=== PATIENT | female | born 1980 | race Caucasian/White ===

== ENCOUNTER 2017-10-18 16:37 | Emergency (ER) | payer OTHER, BC, SELFPAY ==
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
[2017-10-18 16:43] VITALS: BP 141/97; PULSE 90; RESP 16; TEMP 36.9; O2SAT 99; BMI 28.3
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
--- NOTE | 2017-10-18 17:23 | PC.NURSE ---
denies nausea at this time, sitting up
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
[2017-10-18] MEDS: CYCLOBENZAPRINE 10 MG TABLET PO (17:29)
[2017-10-18 18:45] VITALS: BP 130/90; PULSE 84; RESP 18; O2SAT 100
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
--- NOTE | 2017-10-18 19:05 | PC.NURSE ---
pt states, muscle relaxant medication helped, but the spine still hurts, requesting xray. provider made aware.
== END 2017-10-18 19:47 | disposition home or self-care (01) ==
PROVIDERS: Emergency Provider Nurse Practitioner Family
DX: S16.1XXA Strain of muscle, fascia and tendon at neck level, initial encounter (principal); V49.50XA Passenger injured in collision with unspecified motor vehicles in traffic accident, initial encounter
CPT/HCPCS: 72072; 72125; 99283

== ENCOUNTER 2017-10-24 18:21 | Emergency (ER) | payer OTHER, BC, SELFPAY ==
[2017-10-24 18:26] VITALS: BP 127/91; PULSE 86; RESP 16; TEMP 36.9; O2SAT 99; BMI 27.4
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
[2017-10-24 20:30] VITALS: BP 127/91; PULSE 86; RESP 16; TEMP 36.9; O2SAT 99; BMI 27.4
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
== END 2017-10-24 21:10 | disposition home or self-care (01) ==
PROVIDERS: Emergency Provider Emergency Medicine
DX: S46.911A Strain of unspecified muscle, fascia and tendon at shoulder and upper arm level, right arm, initial encounter (principal); V89.2XXD Person injured in unspecified motor-vehicle accident, traffic, subsequent encounter
CPT/HCPCS: 73030; 99282; 99283

== ENCOUNTER 2018-02-06 09:12 | Emergency (ER) | payer BC, SELFPAY ==
[2018-02-06 09:29] VITALS: BP 131/93; PULSE 96; RESP 15; TEMP 37.2; O2SAT 99; BMI 27.4
[2018-02-06 11:16] VITALS: BP 118/74; PULSE 64; RESP 15; O2SAT 98
--- NOTE | 2018-02-06 12:17 | ED_ITS ---
HPI - Abdominal Pain General Chief Complaint: Abdominal Pain Stated Complaint: shooting pain in lower abd. Time Seen by Provider: 02/06/18 12:09 Source: patient Mode of arrival: ambulatory Limitations: no limitations History of Present Illness HPI narrative: This is a 37-year-old female comes to the emergency department with complaint of abdominal pain. Patient states she is having some right lower quadrant pain. She felt sort of chilled last night. She had pain got nauseated throughout up and her pain improved. Today her pain has returned. She has been nauseated but not had any vomiting. No diarrhea or constipation. She is having urinary frequency she does not think she has had dysuria. She denies any vaginal bleeding or discharge. Patient is also having a little bit of flank pain. She states she has had a hysterectomy as well as her left ovary and fallopian tube removed. She does have her right ovary and fallopian tube she states she does have her appendix. She denies any other medical issues. Related Data Home Medications Medication Instructions Recorded Confirmed Bc Powder 1 dose PO PRN PRN 10/18/17 02/06/18 acetaminophen [Tylenol] 1 dose PO PRN PRN 10/18/17 02/06/18 Previous Rx's Medication Instructions Recorded tramadol [Ultram] 50 mg PO Q4-6H PRN #10 tab 02/06/18 Allergies Allergy/AdvReac Type Severity Reaction Status Date / Time No Known Drug Allergies Allergy Verified 02/06/18 09:29 Review of Systems Review of Systems All systems reviewed & are unremarkable except as noted in HPI and below Constitutional Reports chills Gastrointestinal Gastrointestinal: Reports abdominal pain, Denies change in bowel habits, Denies change in stool character, Denies diarrhea, Reports nausea and Reports vomiting Genitourinary Denies abnormal vaginal bleeding, Denies hematuria, Reports urinary frequency, Reports flank pain (Right), Denies urinary incontinence and Denies urinary urgency Musculoskeletal Reports back pain (Right back/flank) [facility] Medical History H/O: hysterectomy (Acute) Migraines (Acute) Surgical History H/O oophorectomy (Acute) History of cholecystectomy (Acute) Social History Smoking Status: Current every day smoker Exam Narrative Exam Narrative: GENERAL: Alert and oriented x three, obese femalein moderate distress HEENT: Head normocephalic, atraumatic, EOMI, pupils reactive, face symmetric, moist mucous membranes NECK: Supple, full range of motion CARDIOVASCULAR: Regular rate and rhythm without murmurs, rubs or gallops. RESPIRATORY: Breath sounds equal bilaterally, no wheezes rales or rhonchi. ABDOMEN: Soft, positive for right lower quadrant tenderness. Patient also does not have any rigidity, rebound or mass. She has no guarding. Normoactive bowel sounds all 4 quadrants. No guarding or rebound, rigidity, no mass : right CVA tenderness mild, no left CVA tenderness. EXTREMITIES: Normal range of motion, no clubbing or edema. Neurovascularly intact NEUROLOGICAL: Cranial nerves II through XII grossly intact. Moving all extremities SKIN: Warm, dry, no petechiae, no rashes or lesions. Initial Vital Signs Initial Vital Signs: Vital Signs Temperature 98.9 F 02/06/18 09:29 Pulse Rate 96 H 02/06/18 09:29 Respiratory Rate 15 02/06/18 09:29 Blood Pressure 131/93 H 02/06/18 09:29 Pulse Oximetry 99 02/06/18 09:29 Course Orders Ordered: ED Orders 02/06/18 13:12 CT abdomen pelvis w con Stat 02/06/18 13:15 Complete Blood Count AUTO DIFF Stat Comprehensive Metabolic Panel Stat Lipase Stat Discontinued Medications Sodium Chloride (Normal Saline 0.9%) 1,000 mls @ 150 mls/hr IV CONT PASQUALE Last Infusion: 02/06/18 15:38 Dose: 0 mls/hr Infusion: 02/06/18 14:10 Dose: 150 mls/hr Infusion: 02/06/18 13:56 Dose: 0 mls/hr Admin: 02/06/18 13:19 Dose: 150 mls/hr Ketorolac Tromethamine (Toradol) 30 mg IV NOW ONE Stop: 02/06/18 12:25 Last Admin: 02/06/18 13:18 Dose: 30 mg Vital Signs - 8 hr 02/06/18 12:51 02/06/18 13:32 02/06/18 15:38 Pulse Rate 68 70 84 Respiratory Rate 16 16 15 Blood Pressure 110/79 Blood Pressure [Right Arm] 129/76 119/69 Pulse Oximetry 99 99 96 MDM - Abdominal Pain Lab Data Attestation: I reviewed the patient's lab results. Result diagrams: 02/06/18 13:15 02/06/18 13:15 Lab Results 02/06/18 02/06/18 Range/Units 13:15 13:15 WBC 15.0 H (4.5-11.0) X10^3/uL RBC 4.82 (4.0-5.2) X10^6/uL Hgb 14.6 (12.0-16.0) g/dL Hct 43.2 (36-46) % MCV 89.7 (80-100) fL MCH 30.3 (26-34) PG MCHC 33.8 (30-36) % RDW 14.7 (11.6-14.8) % Plt Count 394 (150-400) X10^3/uL Neut % (Auto) 63.2 (50-75) % Lymph % (Auto) 29.5 (25-40) % [place] % (Auto) 4.2 (3-14) % Eos % (Auto) 2.0 (2-4) % Baso % (Auto) 1.1 (0-2) % Neut # (Auto) 9500 H (2350-3063) /uL Sodium 143 (137-145) mmol/L Potassium 4.3 (3.4-5.1) mmol/L Chloride 104 (98-107) mmol/L Carbon Dioxide 31 (22-32) mmol/L BUN 9 (7-17) mg/dL Creatinine 0.60 (0.52-1.04) mg/dL Estimated GFR > 60.0 (>60) mL/min BUN/Creatinine Ratio 15.0 (6-22) Glucose 89 (70-100) mg/dL Calcium 9.5 (8.4-10.2) mg/dL Total Bilirubin 0.6 (0.2-1.3) mg/dL AST 29 (14-36) IU/L ALT 28 (9-52) IU/L Alkaline Phosphatase 74 (38-126) U/L Total Protein 7.5 (6.3-8.2) g/dL Albumin 4.5 (3.5-5.0) g/dL Globulin 3.0 (1.7-4.1) g/dL Albumin/Globulin Ratio 1.5 (1.0-2.8) Lipase 78 (23-300) U/L Point of care testing: Point of Care Testing Test Results Negative Urine Dip Bedside Urine Glucose Negative Bedside Urine Bilirubin - Negative Bedside Urine Ketone - Negative Urine Specific [place] 1.015 Bedside Urine Occult Blood - Negative Bedside Urine pH 6.5 Bedside Urine Protein - Negative Bedside Urine Urobilinogen - Negative Bedside Urine Nitrite - Negative Bedside Urine Leukocytes - Negative Esterase Imaging Data CT scan - abdomen: Radiologist's impression: [address] [id number] [address] Scan Report Signed Patient: China Saeed JMR#: [id number] : 1980Acct:[id number] Age/Sex: 37 / FDate of Service: 02/06/18 Loc: ED Accession Number: [id number] Procedure: CT abdomen pelvis w con Ordering Provider: Mari Dickinson D.O. PROCEDURE: CT ABDOMEN PELVIS W CON INDICATIONS: RLQ pain, frequency TECHNIQUE: After the administration of intravenous contrast, 5 mm thick sections acquired from the diaphragm to the symphysis. 5 mm coronal and sagittal reformats were acquired. For radiation dose reduction, the following was used: automated exposure control, adjustment of mA and/or kV according to patient size. COMPARISON: None. FINDINGS: Image quality: Excellent. ABDOMEN: Lung bases: Lung bases are clear. Heart size is normal. Solid organs: Liver is normal in size and enhancement. Gallbladder has undergone prior cholecystectomy.. Biliary system is non dilated. Pancreas enhances normally. Spleen is normal in size and enhancement. No adrenal nodules. Kidneys demonstrate normal size and enhancement, without hydronephrosis. Peritoneum and bowel: Bowel loops demonstrate normal wall thickness and caliber. No free fluid or air. Nodes and vessels: No retroperitoneal or mesenteric adenopathy by size criteria. Aorta and inferior vena cava are normal in size. Miscellaneous: No ventral hernias. PELVIS: Genitourinary: Bladder wall thickness is normal. Miscellaneous: No inguinal hernias or adenopathy. Bones: No suspicious bony lesions. No vertebral body compression fractures. IMPRESSION: Source of current symptoms is not seen. Prior cholecystectomy. Dictated by: Isidoro Calderon M.D. on 02/06/2018 at 14:43 Approved by: Isidoro Calderon M.D. on 02/06/2018 at 14:44 MDM Narrative Medical decision making narrative: 37-year-old female comes in with complaint of right lower abdominal pain a little bit into the flank. She also had some frequency. Um initially concern for pyelonephritis but urine was negative. Patient does have a white count of [address] abdomen pelvis was ordered. Patient case was discussed with Dr. Peoples while CT was pending. CT does not identify a appendix but I spoke with Dr. Calderon who read the imaging and he does not see any free fluid, inflammation or cyst signs that would be suspicious for appendicitis. Discussed with patient there is a remote chance she could have endometriosis as a potential cause but I did ask her to return if she is having worsening symptoms if she could potentially have very early appendicitis versus other causes. Discharge Plan Departure Patient Disposition: Home Clinical Impression: Abdominal pain Discharge Date/Time: 02/06/18 15:40 Interventions: ED Discharge Assessment Last Done: 02/06/18 15:38 Instructions: DI for Abdominal Pain-Adult Activity Restrictions/Additional Instructions: Follow-up with primary care in 2-3 days for recheck. Your labs today do show a slightly elevated white blood cell count but no other acute changes. Your CT does not show any clear changes to the appendix or other organs in the abdomen although your appendix was not clearly identified. Take pain medications as prescribed Return to the emergency department for fevers greater than 100.4, increasing abdominal or flank pain, syncope, new or persistent vomiting. Black or bloody stools or other new or concerning symptoms. Prescriptions: New tramadol [Ultram] 50 mg tablet 50 mg PO Q4-6H PRN (Reason: pain) Qty: 10 RF: 0 No Action acetaminophen [Tylenol] 325 mg Tablet 1 dose PO PRN PRN (Reason: Pain, Mild) RF: 0 Bc Powder 1 dose PO PRN PRN (Reason: Pain, Mild) RF: 0 Referrals: Crystal Russell MD [Physician] - Stand Alone Forms: Work/School Restrictions
[2018-02-06 12:51] VITALS: BP 129/76; PULSE 68; RESP 16; O2SAT 99
--- NOTE | 2018-02-06 13:06 | PC.NURSE ---
c/o right lower abdominal pain for 2 days, better when doubled over. last solid meal last night at 6pm, pt insisting with ice chips, ok with dr banda.
--- NOTE | 2018-02-06 13:12 | DI.CT.S_ITS ---
PROCEDURE: CT ABDOMEN PELVIS W CON INDICATIONS: RLQ pain, frequency TECHNIQUE: After the administration of intravenous contrast, 5 mm thick sections acquired from the diaphragm to the symphysis. 5 mm coronal and sagittal reformats were acquired. For radiation dose reduction, the following was used: automated exposure control, adjustment of mA and/or kV according to patient size. COMPARISON: None. FINDINGS: Image quality: Excellent. ABDOMEN: Lung bases: Lung bases are clear. Heart size is normal. Solid organs: Liver is normal in size and enhancement. Gallbladder has undergone prior cholecystectomy.. Biliary system is non dilated. Pancreas enhances normally. Spleen is normal in size and enhancement. No adrenal nodules. Kidneys demonstrate normal size and enhancement, without hydronephrosis. Peritoneum and bowel: Bowel loops demonstrate normal wall thickness and caliber. No free fluid or air. Nodes and vessels: No retroperitoneal or mesenteric adenopathy by size criteria. Aorta and inferior vena cava are normal in size. Miscellaneous: No ventral hernias. PELVIS: Genitourinary: Bladder wall thickness is normal. Miscellaneous: No inguinal hernias or adenopathy. Bones: No suspicious bony lesions. No vertebral body compression fractures. IMPRESSION: Source of current symptoms is not seen. Prior cholecystectomy. Dictated by: Isidoro Calderon M.D. on 02/06/2018 at 14:43 Approved by: Isidoro Calderon M.D. on 02/06/2018 at 14:44
[2018-02-06] MEDS: KETOROLAC 60 MG/2 ML VIAL 30 MG IV (13:18)
[2018-02-06] MEDS: SODIUM CHLORIDE 0.9% 1,000 ML 150 ML IV (13:19)
--- NOTE | 2018-02-06 13:20 | PC.NURSE ---
pt reports, lac iv , started by timothy, no blood was drawn.
[2018-02-06 13:32] VITALS: BP 119/69; PULSE 70; RESP 16; O2SAT 99
[2018-02-06 13:32] LABS: Add Manual Diff / Slide Review NO; Basophils Percent Auto 1.1 % (0-2); Hematocrit 43.2 % (36-46); Hemoglobin 14.6 g/dL (12.0-16.0); Lymphocytes Percent Auto 29.5 % (25-40); Mean Corpuscular HGB Conc 33.8 % (30-36); Mean Corpuscular Hemoglobin 30.3 PG (26-34); Mean Corpuscular Volume 89.7 fL (80-100); Monocytes Percent Auto 4.2 % (3-14); Neutrophils Absolute Auto 9500 /uL (3000-5900); Neutrophils Percent Auto 63.2 % (50-75); Platelet Count 394 X10^3/uL (150-400); Red Blood Cell Count 4.82 X10^6/uL (4.0-5.2); Red Cell Distribution Width 14.7 % (11.6-14.8)
--- NOTE | 2018-02-06 13:32 | PC.NURSE ---
better with toradol at this time.
[2018-02-06 13:40] LABS: Alanine Aminotransferase 28 IU/L (9-52); Albumin 4.5 g/dL (3.5-5.0); Albumin Globulin Ratio 1.5 (1.0-2.8); Alkaline Phosphatase 74 U/L (38-126); Aspartate Aminotransferase 29 IU/L (14-36); Bilirubin Total 0.6 mg/dL (0.2-1.3); Blood Urea Nitrogen 9 mg/dL (7-17); Calcium 9.5 mg/dL (8.4-10.2); Carbon Dioxide 31 mmol/L (22-32); Chloride 104 mmol/L (98-107); Estimated Glomerular Filt Rate > 60.0 mL/min (>60); Glucose 89 mg/dL (70-100); Potassium 4.3 mmol/L (3.4-5.1); Sodium 143 mmol/L (137-145); Total Protein 7.5 g/dL (6.3-8.2)
[2018-02-06 13:56] LABS: Lipase 78 U/L (23-300)
[2018-02-06 14:03] LABS: HEMOLYSIS 80 (0-50)
[2018-02-06 15:38] VITALS: BP 110/79; PULSE 84; RESP 15; O2SAT 96
== END 2018-02-06 15:40 | disposition home or self-care (01) ==
PROVIDERS: Emergency Provider Emergency Medicine
DX: R10.9 Unspecified abdominal pain (principal)
CPT/HCPCS: 74177; 80053; 81003; 81025; 83690; 85025; 96361; 96374; 99283; 99285; J1885; Q9967